=== PATIENT | female | born 1990 | race Caucasian/White ===

== ENCOUNTER 2016-04-02 12:47 | Emergency (ER) | payer MEDICAID ==
[2016-04-02 13:07] VITALS: BP 128/71
--- NOTE | 2016-04-02 13:37 | ERNOTE ---
Medical Problem HPI - Narrative Date of Service: 04/02/16 - General Chief Complaint: Nausea/Vomiting Time Seen by Provider: 04/02/16 13:11 Source: patient Exam Limitations: no limitations - Immun/Allergies/Home Medications Immunizations: IMMUNIZATION HX Immunizations Up to Date Yes History of Influenza Vaccine Yes Hx Pneumococcal Vaccination More Information Required Allergies/Adverse Reactions: Allergies sulfamethoxazole [From Bactrim] Allergy (Intermediate, Verified 04/02/16 13:07) Hives trimethoprim [From Bactrim] Allergy (Intermediate, Verified 04/02/16 13:07) Hives amoxicillin [Amoxicillin] Allergy (Verified 04/02/16 13:07) Sulfa (Sulfonamide Antibiotics) Allergy (Verified 04/02/16 13:07) Home Medications: HOME MEDICATIONS Ondansetron [Zofran Odt] 4 mg PO Q6H PRN #20 tab 04/02/16 [Last Taken Unknown] - History of Present History Narrative: Pt presents to ER with c/o dizziness, lightheadedness, abdominal pain, nausea, vomiting, diarrhea, and headaches. Pt states she has been drinking tea and water. Pt states this started yesterday. Pt denies ear pain, vision changes, sinus pain/drainage, cough, shortness of breath. Date (Duration): 04/01/16 Timing: constant Severity: moderate Modifying Factors - (Worsens): Present: eating, movement Review of Systems - Review of Systems Constitutional: Present: fever, chills, diaphoresis, weakness, fatigue, malaise , decreased activity level. Absent: recent illness, weight loss, fussy EYE: Present: no symptoms reported. Absent: eye pain, eye discharge, blurred vision, double vision, vision changes ENT: Present: no symptoms reported. Absent: ear pain, ear discharge, nose pain , nose congestion, nasal drainage, sore throat, throat swelling Respiratory: Present: no symptoms reported. Absent: shortness of breath, cough , wheezing, stridor Cardiology: Present: no symptoms reported. Absent: chest pain, palpitations, syncope Gastrointestinal/Abdominal: Present: nausea, vomiting, diarrhea, abdominal pain , eating less, drinking less. Absent: constipation Genitourinary: Present: no symptoms reported. Absent: frequency, pain, dysuria Musculoskeletal: Present: back pain, muscle pain Skin: Present: no symptoms reported. Absent: rash, lesions Neurological: Present: headache. Absent: anxiety, depressed, weakness, numbness , tingling, tremors Endocrine: Present: no symptoms reported. Absent: excessive sweating, intolerance to heat, intolerance to cold Hematologic/Lymphatic: Present: no symptoms reported. Absent: easy bruising, easy bleeding Psych: Present: no symptoms reported. Absent: anxiety, depressed - Patient's Past Medical History Patient History - Medical: No pertinent hx Patient History - Cardiac/Respiratory: No pertinent hx Patient History - Cancer: No Hx of Cancer Patient History - Surgical Procedures: No surgical history Patient History - Other: None - Family History Mother Family History - Medical: No pertinent hx Father Family History - Medical: No pertinent hx - Social History Living Situations: home Does anyone smoke in the home?: No Smoking Status: Never smoker Have you smoked in the past 12 months: No Alcohol Use: rarely Drug Use: none - Immunizations Immunizations Up to Date: Yes Hx Pneumococcal Vaccination: More Information Required to Determine History of Influenza Vaccine: Yes Physical Exam - Physical Exam General Appearance: Present: wd/wn, alert, no apparent distress. Absent: severe distress, anxious, obese Eye Exam: Normal inspection: bilateral, PERRL: bilateral, EOMI: bilateral Ears, Nose, Throat: Present: normal ENT inspection, hearing grossly normal, normal pharynx. Absent: cerumen impaction, nasal congestion, sinus pain/ drainage, tonsillar exudate Neck: Present: normal inspection, nontender, supple, full range of motion, limited range of motion Respiratory: Present: no respiratory distress, normal breath sounds, no accessory muscle use, chest nontender, lungs clear. Absent: decreased breath sounds, crackles, rales, rhonchi, stridor, wheezing Cardiovascular/Chest: Present: regular rate, rhythm, no murmur, normal peripheral pulses. Absent: tachycardia, bradycardia, irregularly irregular Gastrointestinal/Abdominal: Present: normal bowel sounds, nondistended, soft, no organomegaly, tenderness. Absent: abnormal bowel sounds, distended, guarding , rebound Back Exam: Present: normal inspection, normal range of motion, no CVA tenderness , no vertebral tenderness Extremity Exam: Present: normal inspection, non-tender, no edema, normal range of motion. Absent: decreased range of motion Neurological Exam: Present: alert, oriented, normal mood/affect, no motor/ sensory deficits, chick grader II-XII nml as tested, normal cerebellar test. Absent: facial droop, motor weakness Skin Exam: Present: normal color, warm/dry. Absent: diaphoresis, cyanosis, skin rash Lymphatic Exam: Present: no adenopathy ED Progress - Results and Orders Patient's Lab Results:: I have reviewed the patient's lab results. - Vital Signs Patient's Vital Signs:: I have reviewed the patient's vital signs. Vital Signs: Vital Signs 04/02/16 13:03 Temperature 34.8 C L Pulse Rate 92 Respiratory 12 Rate Blood Pressure 128/71 O2 Sat by Pulse 98 Oximetry - Progress/Reassessment Chief Complaint: Nausea/Vomiting Progress:: Improved Departure - Departure Clinical Impression: Acute gastroenteritis Disposition: Home self-care Condition: Good Instructions: Viral Gastroenteritis, Adult, [id number] Additional Instructions: Please follow up with primary provider in 2-3 days. Prescriptions: Ondansetron [Zofran Odt] 4 mg PO Q6H PRN #20 tab PRN Reason: Nausea
[2016-04-02] MEDS ORDERED: ONDANSETRON 4 MG TAB.RAPDIS PO ONE (13:43)
[2016-04-02] MEDS ORDERED: KETOROLAC TROMETHAMINE 60 MG/2 ML VIAL IM ONE ×2 (13:43→13:47)
[2016-04-02] MEDS ORDERED: diphenhydrAMINE HCL 50 MG/ML VIAL IM ONE (13:43)
[2016-04-02 13:47] LABS: Hematocrit 37.5 % (37.0-47.0); Hemoglobin 12.6 gm/dL (12.5-16.0); Mean Corpuscular Hemoglobin 28.6 pg (27-31); Mean Corpuscular Hgb Conc 33.6 g/dl (32-36); Mean Platelet Volume 9.8 fl (6.0-9.5); Neutrophil # 1.5 K/mm3 (1.3-6.0); Platelet Count 238 K/mm3 (150-450); Red Blood Count 4.41 M/mm3 (4.2-5.4); Red Cell Distribution Width 13.4 % (11.5-14.0); White Blood Count 3.7 K/mm3 (4.0-10.5)
[2016-04-02] MEDS ORDERED: diphenhydrAMINE HCL 50 MG/ML VIAL ONE (13:47)
[2016-04-02] MEDS ORDERED: ONDANSETRON 4 MG TAB.RAPDIS ONE (13:47)
[2016-04-02 14:02] LABS: BUN/Creatinine Ratio 13.2 (9.0-21.6); Carbon Dioxide 29.9 mmol/L (24-32.6); Potassium 3.5 mmol/L (3.4-4.6)
[2016-04-02 14:03] LABS: Albumin * 3.6 gm/dl (3.4-5.0); Anion Gap 10.6 mmol/L (6.8-13.8); Bilirubin, Total 0.4 mg/dL (0.0-1.1); Ca. Corrected For Albumin 8.8 mg/dL (8.4-10.2); Calcium * 8.8 mg/dL (7.9-10.9); Total Protein 6.9 gm/dL (6.2-8.2)
== END 2016-04-02 16:56 | disposition home or self-care (01) ==
LOC: ER 12:47
DX: A08.4 Viral intestinal infection, unspecified (principal)

== ENCOUNTER 2016-07-02 09:27 | Emergency (ER) | payer MEDICAID ==
[2016-07-02 09:44] VITALS: BP 110/71
--- OUTSIDE RECORDS SUMMARY | 2016-07-02 10:07 | XMS REPORT | Continuity of Care Document ---
:1990 Author Organization [facility] ([facility]) Address [address] [place] [address] Phone [phone] Care Team Providers Name Role Phone Yamil Monte Primary Care Provider [phone] Source Comments This disclosure is being made pursuant to the Care Everywhere program, applicable federal and state laws, and may not contain all informaitonavailable regarding this patient.[facility] ([facility]) Active Allergies and Adverse Reactions Not on File Current Medications Prescription Sig. Disp. Refills Start Date End Date Status HYDROcodone-acetamino Take 1-2 tablets by 15 tablet 0 12/09/2015 Active phen 5-325 mg per mouth every 6 hours tablet as needed for Pain. albuterol 2.5 mg/3 mL Use 3 mL (2.5 mg 180 mL 11 12/09/2015 Active inhalation solution total) by inhalation every 4 hours as needed. LORazepam 1 mg tablet Take 0.5-1 tablets 12 tablet 0 12/09/2015 Active (0.5-1 mg total) by mouth every 6 hours as needed for Anxiety. Active Problems Not on file Social History Tobacco Use Types Packs/Day Years Used Date Never Assessed Last Filed Vital Signs Vital Sign Reading Time Taken Blood Pressure 121/75 12/09/2015 11:23 PM CDT Pulse 89 12/09/2015 11:23 PM CDT Temperature 37.1 C (98.8 F) 12/09/2015 10:15 PM CDT Respiratory Rate 16 12/09/2015 11:23 PM CDT Height - - Weight - - Body Mass Index - - Oxygen Saturation 100% 12/09/2015 11:23 PM CDT Plan of Care Health Maintenance Due Date Last Done Comments Hepatitis B Vaccine (1 of 3 - Primary Series) 1990 HPV Vaccine (1 of 3 - Female/Unknown 3 Dose Series) 10/08/2002 Tdap Vaccine 10/08/2002 Cervical Cancer Screening 10/08/2009 Lipid Disorder Screening 10/08/2009 MMR Vaccine 10/08/2009 Td Vaccine 10/08/2009 Varicella Vaccine (1 of 2 - Adult - No Evidence of 10/08/2009 Immunity) Influenza Vaccine: Seasonal (#1) 10/07/2015 Results from Last 3 Months Not on file
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
== END 2016-07-02 11:00 | disposition home or self-care (01) ==
LOC: ER 09:27
DX: J30.2 Other seasonal allergic rhinitis (principal)

== ENCOUNTER 2016-07-06 21:59 | Emergency (ER) | payer MEDICAID ==
--- OUTSIDE RECORDS SUMMARY | 2016-07-06 22:19 | XMS REPORT | Continuity of Care Document ---
:1990 Author Organization [facility] ([facility]) Address [address] [place] [address] Phone [phone] Care Team Providers Name Role Phone Yamil Monte Primary Care Provider [phone] Source Comments This disclosure is being made pursuant to the Care Everywhere program, applicable federal and state laws, and may not contain all informaitonavailable regarding this patient.[facility] ([facility]) Active Allergies and Adverse Reactions Not on [...]
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
[2016-07-06] MEDS ORDERED: NAPROXEN SODIUM 550 MG TABLET PO ONE (23:03)
[2016-07-06] MEDS ORDERED: NAPROXEN SODIUM 550 MG TABLET ONE (23:07)
[2016-07-06 23:14] VITALS: BP 120/76
== END 2016-07-06 23:13 | disposition home or self-care (01) ==
LOC: ER 21:59
DX: M94.0 Chondrocostal junction syndrome [Tietze] (principal); F17.210 Nicotine dependence, cigarettes, uncomplicated

== ENCOUNTER 2016-09-20 15:10 | Emergency (ER) | payer MEDICAID ==
[2016-09-20 16:31] VITALS: BP 107/54
--- NOTE | 2016-09-20 16:55 | ERNOTE ---
ENT HPI Date of Service: 09/20/16 Presenting Symptoms: other - sore throat Time Seen by Provider: 09/20/16 16:11 Source: patient Exam Limitations: no limitations - Immun/Allergies/Home Medications Immunizations: IMMUNIZATION HX Immunizations Up to Date Yes History of Influenza Vaccine Yes Hx Pneumococcal Vaccination More Information Required Allergies/Adverse Reactions: Allergies Allergy/AdvReac Type Severity Reaction Status Date / Time amoxicillin [Amoxicillin] Allergy Intermediate Hives Verified 09/20/16 15:27 Sulfa (Sulfonamide Allergy Intermediate Hives Verified 09/20/16 15:27 Antibiotics) sulfamethoxazole Allergy Intermediate Hives Verified 09/20/16 15:27 [From Bactrim] trimethoprim [From Bactrim] Allergy Intermediate Hives Verified 09/20/16 15:27 Home Medications: HOME MEDICATIONS Norelgestromin/Ethin.estradiol [Xulane Patch] 1 each TD DAILY 07/06/16 [Last Taken Unknown] Cefdinir 300 mg PO BID #14 capsule 09/20/16 [Last Taken Unknown] Lidocaine HCl [Lidocaine HCl Viscous 2%] 5 ml MM BID PRN #30 udc 09/20/16 [Last Taken Unknown] - Pain Score Pain Score #1 Pain Score: 8 - History of Present Illness Narrative: Patient is a 25 year old female who presents to the ED with complaints of sore throat x 3 days. States she has had frequent diagnosis of strep throat in the past and this feels like the same. Denies NV, fever or chills yet complains of fatigue. Date (Duration): 09/17/16 Severity: Present: mild ENT Location: Present: throat Prearrival Treatment: Present: no prearrival treatment Modifying Factors - Improves: Reports: cold Modifying Factors - Worsens: Reports: nothing Associated Symptoms - ENT: Reports: poor fluid intake, poor solid intake, sore throat. Denies: fever, malaise, cough, voice change, drooling, nasal congestion /drainage, facial pain/swelling, tooth pain, jaw swelling, change in hearing, ear drainage, headache, foreign body Review of Systems - Review of Systems Constitutional: Present: fatigue. Absent: recent illness, fever, chills, diaphoresis, weakness, malaise, weight loss EYE: Present: no symptoms reported. Absent: eye pain, eye discharge, blurred vision, double vision, vision changes ENT: Present: sore throat. Absent: ear pain, ear discharge, pulling on ears, nose pain, nose congestion, nasal drainage, throat swelling Respiratory: Present: no symptoms reported. Absent: shortness of breath, cough , orthopnea, wheezing, stridor Cardiology: Present: no symptoms reported. Absent: chest pain, palpitations, syncope, edema, claudication Gastrointestinal/Abdominal: Present: no symptoms reported, diarrhea, eating less , drinking less. Absent: nausea, vomiting, constipation, abdominal pain Genitourinary: Present: no symptoms reported Musculoskeletal: Present: no symptoms reported Skin: Present: no symptoms reported. Absent: rash Neurological: Present: no symptoms reported Endocrine: Present: no symptoms reported Hematologic/Lymphatic: Present: no symptoms reported Psych: Present: no symptoms reported - Patient's Past Medical History Patient History - Medical: No pertinent hx Patient History - Cardiac/Respiratory: No pertinent hx Patient History - Cancer: No Hx of Cancer Patient History - Surgical Procedures: D & C Patient History - Other: None LMP (females 10-50): last week - Family History Mother Family History - Medical: No pertinent hx Father Family History - Medical: No pertinent hx Family History - Cardiac/Respiratory: No pertinent hx Family History - Cancer: No pertinent family hx - Social History Living Situations: home Abuse History: No History of abuse Psych History: Hx of Anxiety Does anyone smoke in the home?: No Smoking Status: Former smoker Alcohol Use: rarely Drug Use: none - Immunizations Immunizations Up to Date: Yes Hx Pneumococcal Vaccination: More Information Required to Determine History of Influenza Vaccine: Yes Physical Exam - Physical Exam General Appearance: Present: wd/wn, alert, no apparent distress Head Exam: Present: normal inspection, no evidence of injury Eye Exam: Normal inspection: bilateral, PERRL: bilateral Ears, Nose, Throat: Present: pharyngeal erythema. Absent: abnormal TM (R), abnormal TM (L), tonsillar exudate, tonsillar swelling, dry mucous membranes Neck: Present: normal inspection, nontender, supple, full range of motion. Absent: lymphadenopathy (R), lymphadenopathy (L) Respiratory: Present: no respiratory distress, normal breath sounds, no accessory muscle use, chest nontender, lungs clear Cardiovascular/Chest: Present: regular rate, rhythm, no murmur, normal peripheral pulses Peripheral Pulses: N=norm/S=strong/W=weak/B=bound/A=absent: Carotid (R): Normal , Carotid (L): Normal, Radial (R): Normal, Radial (L): Normal Gastrointestinal/Abdominal: Present: normal bowel sounds, nontender, nondistended, soft, no organomegaly Rectal Exam: Present: deferred Back Exam: Present: normal inspection, normal range of motion, no CVA tenderness , no vertebral tenderness Extremity Exam: Present: normal inspection, non-tender, normal range of motion, no edema Neurological Exam: Present: alert, oriented, normal mood/affect, no motor/ sensory deficits Skin Exam: Present: normal color, warm/dry Lymphatic Exam: Present: no adenopathy ED Progress - Vital Signs Patient's Vital Signs:: I have reviewed the patient's vital signs. Vital Signs: Vital Signs 09/20/16 09/20/16 15:25 16:22 Temperature 37.1 C Pulse Rate 102 H 91 Respiratory 16 Rate Blood Pressure 125/73 107/54 O2 Sat by Pulse 100 97 Oximetry - Progress/Reassessment Chief Complaint: Sore Throat Progress:: Unchanged Progress Note-Subjective: 09/20/16 17:06 States has had multiple episodes of strep in the past and has taken Cefdinir for this. States has never had reaction to it Departure Clinical Impression: Strep pharyngitis - Departure Disposition: Home self-care Condition: Good Instructions: Strep Throat, [id number], Form - Excuse from Work, School, or Physical Activity Additional Instructions: Start antibiotic tonight and take as directed until gone. Push fluids. Tylenol /Ibuprofen for body aches and fever. Referrals: Jazzmine Tapia FNP [Primary Care Provider] - Prescriptions: Cefdinir 300 mg PO BID #14 capsule Lidocaine HCl [Lidocaine HCl Viscous 2%] 5 ml MM BID PRN #30 udc PRN Reason: Pain
== END 2016-09-20 17:04 | disposition home or self-care (01) ==
LOC: ER 15:10
DX: J02.0 Streptococcal pharyngitis (principal)

== ENCOUNTER 2016-09-28 12:27 | Emergency (ER) | payer MEDICAID ==
[2016-09-28 13:20] LABS: Hematocrit 35.9 % (37.0-47.0); Mean Cell Volume 83.7 fl (78-100); Mean Corpuscular Hgb Conc 33.4 g/dl (32-36); Mean Platelet Volume 9.5 fl (6.0-9.5); Neutrophil # 6.6 K/mm3 (1.3-6.0); Neutrophil % 65.9 % (42-75.0); Platelet Count 310 K/mm3 (150-450); Red Blood Count 4.29 M/mm3 (4.2-5.4); Red Cell Distribution Width 12.7 % (11.5-14.0)
--- NOTE | 2016-09-28 13:29 | ERNOTE ---
Date of Service: 09/28/16 Time Seen by Provider: 09/28/16 13:00 Stated Complaint: COUGH/CHEST HURTING Presenting Symptoms:: cough Source: patient, RN notes reviewed, past records Exam Limitations: no limitations Immunizations: IMMUNIZATION HX Immunizations Up to Date Yes History of Influenza Vaccine Yes Hx Pneumococcal Vaccination No Allergies/Adverse Reactions: Allergies amoxicillin [Amoxicillin] Allergy (Intermediate, Verified 09/20/16 15:27) Hives Sulfa (Sulfonamide Antibiotics) Allergy (Intermediate, Verified 09/20/16 15:27) Hives sulfamethoxazole [From Bactrim] Allergy (Intermediate, Verified 09/20/16 15:27) Hives trimethoprim [From Bactrim] Allergy (Intermediate, Verified 09/20/16 15:27) Hives Home Medications: HOME MEDICATIONS NK [No Home Medication] 09/28/16 [Last Taken Unknown] - History of Present Ilness Narrative: Miri is a 25-year-old female who presents to the emergency department for a cough that began 4 days ago. She was seen here on September 20 and tested positive for strep throat. She was treated with cefdinir and reports that she finished the antibiotic yesterday. She should still be on the antibiotic, as it has not been 10 days since it was prescribed. She also reports having a fever last evening. She denies any sick contacts. Prior Treatment: Reports: recently seen, treated by physician. Denies: currently on antibiotics Review of Systems - Review of Systems Constitutional: Present: recent illness, fever, fatigue, malaise. Absent: chills EYE: Present: no symptoms reported ENT: Present: sore throat. Absent: ear pain, nose pain, nose congestion Respiratory: Present: cough. Absent: shortness of breath, wheezing Cardiology: Absent: chest pain, syncope Gastrointestinal/Abdominal: Absent: nausea, vomiting, abdominal pain Genitourinary: Absent: other - possible Musculoskeletal: Absent: muscle pain, joint pain Skin: Absent: rash, lesions, lumps Neurological: Absent: headache, dizziness/light-headedness Endocrine: Present: no symptoms reported Hematologic/Lymphatic: Present: no symptoms reported Psych: Present: no symptoms reported - Patient's Past Medical History Patient History - Medical: Anxiety, Depression Patient History - Cardiac/Respiratory: No pertinent hx Patient History - Cancer: No Hx of Cancer Patient History - Surgical Procedures: D & C Patient History - Other: None LMP (females 10-50): 1 month - Family History Mother Family History - Medical: No pertinent hx Father Family History - Medical: No pertinent hx Family History - Cardiac/Respiratory: No pertinent hx Family History - Cancer: No pertinent family hx - Social History Living Situations: home Abuse History: No History of abuse Psych History: Hx of Anxiety, Hx of Depression Does anyone smoke in the home?: No Smoking Status: Never smoker Have you smoked in the past 12 months: No Do you dip or chew tobacco: No Alcohol Use: rarely Drug Use: none - Immunizations Immunizations Up to Date: Yes Hx Pneumococcal Vaccination: No History of Influenza Vaccine: Yes Physical Exam - Physical Exam General Appearance: Present: wd/wn, alert, no apparent distress Head Exam: Present: normal inspection Ears, Nose, Throat: Present: normal ENT inspection Neck: Present: normal inspection, nontender, supple Respiratory: Present: no respiratory distress, normal breath sounds, no accessory muscle use, lungs clear Cardiovascular/Chest: Present: regular rate, rhythm, no murmur Extremity Exam: Present: normal inspection, normal range of motion, no edema Neurological Exam: Present: alert, oriented, normal mood/affect, no motor/ sensory deficits Skin Exam: Present: normal color, warm/dry ED Progress - Results and Orders Patient's Lab Results:: I have reviewed the patient's lab results. - Vital Signs Patient's Vital Signs:: I have reviewed the patient's vital signs. Vital Signs: Vital Signs 09/28/16 12:44 Temperature 36.9 C Pulse Rate 78 Respiratory 14 Rate Blood Pressure 103/64 O2 Sat by Pulse 98 Oximetry - X-Ray X-Ray #1 X-Ray: chest Interpretation: Reviewed by me X-ray Comments: No acute cardiopulmonary process - Progress/Reassessment Chief Complaint: Upper Respiratory Symptoms Progress:: Unchanged Departure - Departure Clinical Impression: Bronchitis, acute Qualifiers: Bronchitis organism: unspecified organism Qualified Code(s): J20.9 - Acute bronchitis, unspecified Disposition: Home self-care Condition: Good Instructions: Acute Bronchitis, Form - Excuse from Work, School, or Physical Activity Referrals: Jazzmine Tapia FNP [Primary Care Provider] -
[2016-09-28 13:33] LABS: Albumin * 3.2 gm/dl (3.4-5.0); BUN/Creatinine Ratio 7.9 (9.0-21.6); Bilirubin, Total 0.5 mg/dL (0.0-1.1); Ca. Corrected For Albumin 8.8 mg/dL (8.4-10.2); Calcium * 8.5 mg/dL (7.9-10.9); Potassium 3.3 mmol/L (3.4-4.6)
[2016-09-28 13:40] LABS: Anion Gap 11.8 mmol/L (6.8-13.8); Carbon Dioxide 26.5 mmol/L (24-32.6)
[2016-09-28 14:03] VITALS: BP 114/59
== END 2016-09-28 14:03 | disposition home or self-care (01) ==
LOC: ER 12:27
DX: J20.9 Acute bronchitis, unspecified (principal)

== ENCOUNTER 2016-10-04 02:07 | Emergency (ER) | payer MEDICAID ==
[2016-10-04 02:53] LABS: Urine Bilirubin Negative (NEGATIVE); Urine Blood 250 /ul (NEGATIVE); Urine Ketone Negative (NEGATIVE); Urine Protein 100 mg/dL (NEGATIVE); Urine Specific Gravity 1.025 SP.GR. (1.005-1.010); Urine Urobilinogen Normal (NORMAL); Urine pH 6.5 pH (5.0-7.0)
[2016-10-04 02:59] LABS: Urine Appearance Slightly Cloudy; Urine Bacteria 2+; Urine Color Red; Urine Nitrite Positive (NEGATIVE); Urine RBC >50 /hpf (0-5)
[2016-10-04] MEDS ORDERED: LEVOFLOXACIN 500 MG TABLET ONE (03:14)
[2016-10-04] MEDS ORDERED: LEVOFLOXACIN 500 MG TABLET PO ONE (03:14)
[2016-10-04 03:17] VITALS: BP 130/69
--- NOTE | 2016-10-04 03:19 | ERNOTE ---
ER Female HPI Date of Service: 10/04/16 Stated Complaint: UTI Presenting Symptoms: dysuria Source: patient Immunizations: IMMUNIZATION HX Immunizations Up to Date Yes History of Influenza Vaccine Yes Hx Pneumococcal Vaccination No Allergies/Adverse Reactions: Allergies amoxicillin [Amoxicillin] Allergy (Intermediate, Verified 09/20/16 15:27) Hives Sulfa (Sulfonamide Antibiotics) Allergy (Intermediate, Verified 09/20/16 15:27) Hives sulfamethoxazole [From Bactrim] Allergy (Intermediate, Verified 09/20/16 15:27) Hives trimethoprim [From Bactrim] Allergy (Intermediate, Verified 09/20/16 15:27) Hives Home Medications: HOME MEDICATIONS Levofloxacin [Levaquin] 500 mg PO DAILY #10 tab 10/04/16 [Last Taken Unknown] - History of Present Illness Narrative: frequent uti's noted - Patient's Past Medical History Patient History - Medical: No pertinent hx Patient History - Cardiac/Respiratory: No pertinent hx Patient History - Cancer: No Hx of Cancer Patient History - Surgical Procedures: D & C Patient History - Other: None LMP (females 10-50): now - Family History Mother Family History - Medical: No pertinent hx Father Family History - Medical: No pertinent hx Family History - Cardiac/Respiratory: No pertinent hx Family History - Cancer: No pertinent family hx - Social History Living Situations: significant other Abuse History: No History of abuse Psych History: Hx of Anxiety, Hx of Depression Does anyone smoke in the home?: No Smoking Status: Never smoker Alcohol Use: rarely Drug Use: none - Immunizations Immunizations Up to Date: Yes Hx Pneumococcal Vaccination: No History of Influenza Vaccine: Yes ED Progress - Results and Orders Patient's Lab Results:: I have reviewed the patient's lab results. Results and Orders: Laboratory Tests 10/04/16 02:31 Urine Color Red Urine Appearance Slightly cloudy Urine pH 6.5 Ur Specific Riddle 1.025 Urine Protein 100 H Urine Glucose (UA) Negative Urine Ketones Negative Urine Blood 250 H Urine Nitrate Positive H Urine Bilirubin Negative Prot Sulfosalicylic Acd 4+ H Urine Urobilinogen Normal Ur Leukocyte Esterase 100 H Urine RBC >50 H Urine WBC 10-25 H Ur Epithelial Cells 0-5 Urine Bacteria 2+ H Urine Culture Comments Culture to follow - Vital Signs Patient's Vital Signs:: I have reviewed the patient's vital signs. Vital Signs: Vital Signs 10/04/16 02:26 Temperature 36.6 C Pulse Rate 83 Respiratory 14 Rate Blood Pressure 116/77 O2 Sat by Pulse 100 Oximetry - Progress/Reassessment Chief Complaint: Genitourinary Problem Plan - Plan Plan: patient is stable for discharge Departure Clinical Impression: UTI (urinary tract infection) Qualifiers: Urinary tract infection type: acute cystitis Hematuria presence: with hematuria Qualified Code(s): N30.01 - Acute cystitis with hematuria - Departure Disposition: Home self-care Condition: Good Instructions: Urinary Tract Infection, Adult, [id number] Referrals: Jazzmine Tapia FNP [Primary Care Provider] - 10/15/16 Prescriptions: Levofloxacin [Levaquin] 500 mg PO DAILY #10 tab
== END 2016-10-04 03:22 | disposition home or self-care (01) ==
LOC: ER 02:07
DX: N30.01 Acute cystitis with hematuria (principal)

== ENCOUNTER 2016-11-05 09:21 | Day surgery (SDC) | payer MEDICAID ==
[~2016-11-05 09:21] MED LIST: ACETAMINOPHEN 160 MG/5 ML BTL PO PRN; DEXAMETHASONE SOD PHOSPHATE 10 MG/ML VIAL IV PRN; HYDROcodone/ACETAMINOPHEN 5 ML UDC PO PRN; MORPHINE SULFATE 2 MG/ML DISP.SYRIN IV PRN; MORPHINE SULFATE 4 MG/ML SYRG IV PRN; ONDANSETRON HCL/PF 2 MG/ML VIAL IV PRN; PROMETHAZINE HCL 5 MG in DEXTROSE 5 % IN WATER 50 ML IV PRN; RINGER'S SOLUTION,LACTATED 1,000 ML IV PRN
[2016-11-05] MEDS ORDERED: RINGER'S SOLUTION,LACTATED 1,000 ML IV ONE (09:54)
[2016-11-05] MEDS ORDERED: BUPIVACAINE HCL 50 ML VIAL IJ ONE (10:43)
[2016-11-05] MEDS ORDERED: PROMETHAZINE HCL 12.5 MG in DEXTROSE 5 % IN WATER 50 ML IV PRN ×2 (11:03)
[2016-11-05] MEDS ORDERED: NALOXONE HCL 0.4 MG/ML VIAL IV PRN (11:03)
[2016-11-05] MEDS ORDERED: diphenhydrAMINE HCL 50 MG/ML VIAL IV PRN (11:03)
[2016-11-05] MEDS ORDERED: HYDROmorphone HCL 2 MG/ML VIAL IV PRN (11:03)
[2016-11-05] MEDS ORDERED: MORPHINE SULFATE 4 MG/ML SYRG IV ONE (11:05)
[2016-11-05 12:59] VITALS: BP 118/73
== END 2016-11-05 09:22 | disposition home or self-care (01) ==
LOC: AMB 09:21
PROVIDERS: ATTEND Allergy & Immunology
PROC: 0CTQXZZ Resection of Adenoids, External Approach (ICD-10-PCS; 2016-11-05)
PROC: 0CTPXZZ Resection of Tonsils, External Approach (ICD-10-PCS; principal; 2016-11-05 10:55)
DX: J35.03 Chronic tonsillitis and adenoiditis (principal); J35.8 Other chronic diseases of tonsils and adenoids; J45.909 Unspecified asthma, uncomplicated; F17.200 Nicotine dependence, unspecified, uncomplicated; Z68.20 Body mass index [BMI] 20.0-20.9, adult

== ENCOUNTER 2016-11-09 15:01 | Emergency (ER) | payer MEDICAID ==
[2016-11-09] MEDS ORDERED: MORPHINE SULFATE 4 MG/ML SYRG SC ONE (15:29)
[2016-11-09] MEDS ORDERED: METHYLPREDNISOLONE ACETATE 80 MG/ML VIAL IM ONE (15:33)
--- NOTE | 2016-11-09 15:35 | ERNOTE ---
ENT HPI Presenting Symptoms: other - sore throat Time Seen by Provider: 11/09/16 15:21 Source: patient, family Exam Limitations: no limitations - Immun/Allergies/Home Medications Immunizations: IMMUNIZATION HX Immunizations Up to Date Yes History of Influenza Vaccine Yes Hx Pneumococcal Vaccination No Allergies/Adverse Reactions: Allergies Allergy/AdvReac Type Severity Reaction Status Date / Time acetaminophen [From Percocet] Allergy Severe rash, Verified 11/09/16 15:18 "breathe funny; can't catch my breath" oxycodone [From Percocet] Allergy Severe rash, Verified 11/09/16 15:18 "breathe funny; can't catch my breath" amoxicillin [Amoxicillin] Allergy Mild Hives Verified 11/09/16 15:18 sulfamethoxazole Allergy Mild Hives Verified 11/09/16 15:18 [From Bactrim] trimethoprim [From Bactrim] Allergy Mild Hives Verified 11/09/16 15:18 Home Medications: HOME MEDICATIONS Hydrocodone Bit/Acetaminophen [Hydrocodon-Acetamin 7.5-325/15] 10 ml PO Q6H PRN #500 solution 11/05/16 [Last Taken Unknown] - History of Present Illness Narrative: Patient is several days postop from a tonsillectomy and states that the hydrocodone that she is on is not working for the postop pain. Patient states she did not call her ENT physician if it became here for pain relief. While her allergies say she is allergic to Tylenol she states this is not true she is allergic to oxycodone but not the Tylenol in the Percocet. Severity: Present: moderate ENT Location: Present: throat Prearrival Treatment: Present: prescription meds - hydrocodone suspension Modifying Factors - Improves: Reports: nothing Modifying Factors - Worsens: Reports: nothing Associated Symptoms - ENT: Reports: denies symptoms Prior Treament: Reports: recently seen, treated by physician Review of Systems - Review of Systems Constitutional: Present: See HPI EYE: Present: no symptoms reported ENT: Present: sore throat Respiratory: Present: no symptoms reported Cardiology: Present: no symptoms reported Gastrointestinal/Abdominal: Present: no symptoms reported Genitourinary: Present: no symptoms reported Musculoskeletal: Present: no symptoms reported Skin: Present: no symptoms reported Neurological: Present: no symptoms reported Endocrine: Present: no symptoms reported Hematologic/Lymphatic: Present: no symptoms reported Psych: Present: no symptoms reported - Patient's Past Medical History Patient History - Medical: Anxiety, Depression, Other Patient History - Cardiac/Respiratory: No pertinent hx Patient History - Cancer: No Hx of Cancer Patient History - Surgical Procedures: T & A - within the past few days Patient History - Other: None LMP (Calendar): 10/26/16 - Family History Mother Family History - Medical: No pertinent hx Family History - Cardiac/Respiratory: No pertinent hx Family History - Cancer: Breast Father Family History - Medical: No pertinent hx Family History - Cardiac/Respiratory: No pertinent hx Family History - Cancer: No pertinent family hx - Social History Living Situations: home Abuse History: No History of abuse Psych History: Hx of Anxiety, Hx of Depression Does anyone smoke in the home?: No Smoking Status: Former smoker Alcohol Use: rarely Drug Use: none - Immunizations Immunizations Up to Date: Yes Hx Pneumococcal Vaccination: No History of Influenza Vaccine: Yes Physical Exam - Physical Exam General Appearance: Present: wd/wn, alert, moderate distress Eye Exam: Normal inspection: bilateral, PERRL: bilateral Ears, Nose, Throat: Present: pharyngeal erythema, other - healing tonsillectomy Neck: Present: normal inspection, nontender Respiratory: Present: no respiratory distress, normal breath sounds, no accessory muscle use, chest nontender, lungs clear Cardiovascular/Chest: Present: regular rate, rhythm, no murmur, normal peripheral pulses Gastrointestinal/Abdominal: Present: normal bowel sounds, nontender, nondistended, soft, no organomegaly Rectal Exam: Present: deferred Back Exam: Present: normal inspection, normal range of motion Extremity Exam: Present: normal inspection, non-tender, no edema, normal range of motion Neurological Exam: Present: alert, oriented, normal mood/affect Skin Exam: Present: normal color, warm/dry Lymphatic Exam: Present: no adenopathy ED Progress - Vital Signs Patient's Vital Signs:: I have reviewed the patient's vital signs. Vital Signs: Vital Signs 11/09/16 15:15 Temperature 36.9 C Pulse Rate 78 Respiratory 16 Rate Blood Pressure 122/78 O2 Sat by Pulse 100 Oximetry - Progress/Reassessment Chief Complaint: Sore Throat Plan - Plan Plan: Patient is already on the 7.5 mg of hydrocodone suspension. I did give the patient 4 mg of morphine subcutaneous and we will start having her take her hydrocodone suspension every 4 hours. Patient is told that she has to call Dr. Brown in the morning to get further direction regarding her pain management. Patient is also given a one-time injection of Depo-Medrol to help minimize inflammation in the residual swelling that might be present from surgery. Departure Clinical Impression: Post-op pain - Departure Disposition: Home self-care Condition: Good Instructions: Tonsillectomy and Adenoidectomy, Child, Care After, [id number] Additional Instructions: Call Dr. Mendez in the am to keep him apprised of your condition Referrals: Jazzmine Tapia FNP [Primary Care Provider] - Estevan Mendez MD [Courtesy Staff] -
[2016-11-09] MEDS ORDERED: METHYLPREDNISOLONE ACETATE 80 MG/ML VIAL ONE (15:37)
[2016-11-09] MEDS ORDERED: MORPHINE SULFATE 4 MG/ML SYRG ONE (15:37)
[2016-11-09 16:26] VITALS: BP 108/64
== END 2016-11-09 15:46 | disposition home or self-care (01) ==
LOC: ER 15:01
DX: G89.18 Other acute postprocedural pain (principal)

== ENCOUNTER 2016-12-26 14:50 | Emergency (ER) | payer MEDICAID ==
--- NOTE | 2016-12-26 15:12 | ERNOTE ---
Chest Pain/Cardiac HPI Date of Service: 12/26/16 Chief Complaint: Chest Pain Time Seen by Provider: 12/26/16 15:05 Source: patient, family, RN notes reviewed Exam Limitations: clinical condition Immunizations: IMMUNIZATION HX Immunizations Up to Date Yes History of Influenza Vaccine Yes Hx Pneumococcal Vaccination No Allergies/Adverse Reactions: Allergies acetaminophen [From Percocet] Allergy (Severe, Verified 12/26/16 14:58) rash, "breathe funny; can't catch my breath" oxycodone [From Percocet] Allergy (Severe, Verified 12/26/16 14:58) rash, "breathe funny; can't catch my breath" amoxicillin [Amoxicillin] Allergy (Mild, Verified 12/26/16 14:58) Hives sulfamethoxazole [From Bactrim] Allergy (Mild, Verified 12/26/16 14:58) Hives trimethoprim [From Bactrim] Allergy (Mild, Verified 12/26/16 14:58) Hives Home Medications: HOME MEDICATIONS Ibuprofen [Motrin] 600 mg PO Q6H PRN #40 tab 12/26/16 [Last Taken Unknown] Narrative: 26 year old female presents to the ED with chest pain that began late yesterday evening. The pain resolved and she was able to sleep. It has returned this morning. She states that she feels like she is going to pass out when the pain becomes severe. She has not taken anything for her symptoms. She is a smoker and is on an oral contraceptive. Date (Duration): 12/25/16 Timing: intermittent Severity/Quality: moderate, aching Location: central Chest Pain Radiation: no radiation Activities at Onset: none Nitro Today/Relief: no nitro taken today Aspirin Treatment Today: no aspirin today Associated Symptoms: Absent: headache, syncope, cough, shortness of breath, diaphoresis, fever/chills, palpitations, nausea, vomiting, abdominal pain, back pain Prior Chest Pain/Cardiac Workup: Denies: prior chest pain Review of Systems - Review of Systems Constitutional: Absent: recent illness, fever, chills EYE: Present: no symptoms reported ENT: Absent: nose congestion, sore throat Respiratory: Absent: shortness of breath, cough Cardiology: Present: chest pain. Absent: palpitations, syncope, edema, claudication Gastrointestinal/Abdominal: Absent: nausea, vomiting, abdominal pain Genitourinary: Present: no symptoms reported Musculoskeletal: Absent: back pain, neck pain, joint pain Skin: Absent: rash, lesions, lumps Neurological: Absent: headache, weakness, numbness, tingling Endocrine: Present: no symptoms reported Hematologic/Lymphatic: Present: no symptoms reported Psych: Present: no symptoms reported - Patient's Past Medical History Patient History - Medical: Anxiety, Depression, Other Patient History - Cardiac/Respiratory: No pertinent hx Patient History - Cancer: No Hx of Cancer Patient History - Surgical Procedures: T & A Patient History - Other: None LMP (females 10-50): now - Family History Mother Family History - Medical: No pertinent hx Family History - Cardiac/Respiratory: No pertinent hx Family History - Cancer: Breast Father Family History - Medical: No pertinent hx Family History - Cardiac/Respiratory: No pertinent hx Family History - Cancer: No pertinent family hx - Social History Living Situations: home Abuse History: No History of abuse Psych History: Hx of Anxiety, Hx of Depression Smoking Status: Current every day smoker Cigarettes Packs Per Day: 0.5 - Immunizations Immunizations Up to Date: Yes Hx Pneumococcal Vaccination: No History of Influenza Vaccine: Yes Physical Exam - Physical Exam General Appearance: Present: alert, mild distress, thin Ears, Nose, Throat: Present: normal ENT inspection, normal pharynx Neck: Present: normal inspection, nontender, supple Respiratory: Present: no respiratory distress, normal breath sounds, no accessory muscle use, lungs clear Cardiovascular/Chest: Present: regular rate, rhythm, no murmur, normal peripheral pulses Gastrointestinal/Abdominal: Present: nontender, nondistended, soft Extremity Exam: Present: normal inspection, normal range of motion, no edema Neurological Exam: Present: alert, oriented, no motor/sensory deficits, other. Absent: normal mood/affect Skin Exam: Present: normal color, warm/dry ED Progress - Results and Orders Patient's Lab Results:: I have reviewed the patient's lab results. - Vital Signs Patient's Vital Signs:: I have reviewed the patient's vital signs. Vital Signs: Vital Signs 12/26/16 14:52 Temperature 36.9 C Pulse Rate 82 Respiratory 20 Rate Blood Pressure 134/81 O2 Sat by Pulse 100 Oximetry - EKG EKG: NSR EKG read: Reviewed by me - X-Ray X-Ray #1 X-Ray: chest Interpretation: Reviewed by me X-ray Comments: No acute cardiopulmonary process noted - CT/Ultrasound CT/Ultrasound Narrative: CTA chest shows no evidence of PE or other acute cardiopulmonary process - Progress/Reassessment Chief Complaint: Chest Pain Progress:: Improved Departure Clinical Impression: Acute chest wall pain - Departure Disposition: Home self-care Condition: Stable Instructions: Chest Wall Pain, [id number] Additional Instructions: Rest Heat to sore area Take ibuprofen with food Return for worsening symptoms, or follow up with your doctor if symptoms persist Referrals: Jazzmine Tapia FNP [Primary Care Provider] - Prescriptions: Ibuprofen [Motrin] 600 mg PO Q6H PRN #40 tab PRN Reason: Pain
[2016-12-26 15:20] LABS: Hematocrit 36.1 % (37.0-47.0); Hemoglobin 12.4 gm/dL (12.5-16.0); Mean Cell Volume 85.3 fl (78-100); Mean Corpuscular Hemoglobin 29.3 pg (27-31); Mean Corpuscular Hgb Conc 34.3 g/dl (32-36); Mean Platelet Volume 9.3 fl (6.0-9.5); Neutrophil # 3.1 K/mm3 (1.3-6.0); Neutrophil % 50.5 % (42-75.0); Platelet Count 287 K/mm3 (150-450); Red Blood Count 4.23 M/mm3 (4.2-5.4); Red Cell Distribution Width 13.7 % (11.5-14.0); White Blood Count 6.1 K/mm3 (4.0-10.5)
[2016-12-26 15:36] LABS: ALT 16 U/L (19-67); AST 11 U/L (0-48); Albumin * 3.5 gm/dl (3.4-5.0); Alkaline Phosphatase * 51 U/L (50-170); Anion Gap 11.2 mmol/L (6.8-13.8); BUN/Creatinine Ratio 11.1 (9.0-21.6); Bilirubin, Total 0.4 mg/dL (0.0-1.1); Blood Urea Nitrogen 8 mg/dL (3-23); Ca. Corrected For Albumin 9.1 mg/dL (8.4-10.2); Carbon Dioxide 27.2 mmol/L (24-32.6); Chloride 106 mmol/L (97-106); Glucose * 100 mg/dL (70-110); Potassium 3.4 mmol/L (3.4-4.6); Sodium 141 mmol/L (132-142); Total Protein 6.8 gm/dL (6.2-8.2); Troponin I Less than 0.017 ng/ml (0.00-0.10)
[2016-12-26] MEDS ORDERED: KETOROLAC TROMETHAMINE 30 MG/ML VIAL ONE (15:47)
[2016-12-26] MEDS ORDERED: KETOROLAC TROMETHAMINE 30 MG/ML VIAL IV ONE (15:51)
[2016-12-26] MEDS ORDERED: SUCRALFATE 1 G/10 ML UDC PO ONE (17:04)
[2016-12-26] MEDS ORDERED: MAG HYDROX/ALUMINUM HYD/SIMETH 30 ML UDC PO ONE (17:04)
[2016-12-26] MEDS ORDERED: LIDOCAINE HCL 20 ML UDC PO ONE (17:04)
[2016-12-26] MEDS ORDERED: BELLADONNA ALKALOIDS/PHENOBARB 60 ML BTL PO ONE (17:08)
[2016-12-26 18:04] VITALS: BP 136/75
== END 2016-12-26 17:45 | disposition home or self-care (01) ==
LOC: ER 14:50
DX: R07.89 Other chest pain (principal); F17.200 Nicotine dependence, unspecified, uncomplicated

== ENCOUNTER 2018-05-17 01:28 | Inpatient (IN) ==
[2018-05-17] MEDS ORDERED: RINGER'S SOLUTION,LACTATED 1,000 ML IV ONE ×2 (02:45→03:21)
[2018-05-17 03:01] LABS: Cocaine Ur Negative (NEGATIVE); Urine Barbiturate Negative (NEGATIVE); Urine Benzodiazepines Negative (NEGATIVE); Urine Opiates Negative (NEGATIVE); Urine PCP Negative (NEGATIVE); Urine THC Negative (NEGATIVE)
[2018-05-17] MEDS ORDERED: NALOXONE HCL 1 MG/1 ML SYRG IV PRN (03:03)
[2018-05-17] MEDS ORDERED: ONDANSETRON HCL/PF 2 MG/ML VIAL IV PRN (03:03)
[2018-05-17] MEDS ORDERED: BUPIVACAINE HCL/0.9 % NACL/PF 250 ML EP PRN (03:03)
[2018-05-17] MEDS ORDERED: BUPIVACAINE HCL/PF 30 ML VIAL EP SCH (03:15)
[2018-05-17] MEDS ORDERED: RINGER'S SOLUTION,LACTATED 1,000 ML IV PRN (03:21)
[2018-05-17] MEDS ORDERED: OXYTOCIN/DEXTROSE 5%-WATER 30 UNITS/500 ML BAG IV ONE ×2 (03:21→05:06)
[2018-05-17] MEDS ORDERED: LIDOCAINE HCL 50 ML VIAL PERI PRN (03:21)
--- NOTE | 2018-05-17 03:45 | ANES ---
Anesthesia Pre Procedure Eval Vitals/Labs: Last Vital Signs Temp 36.4 C 05/17/18 03:43 Pulse 108 H 05/17/18 03:43 Resp 20 05/17/18 03:43 BP 151/68 H 05/17/18 03:43 Pulse Ox 99 05/17/18 03:43 HOME MEDICATIONS Vit No.124/Iron/FA [ Vitamin Tablet] 1 ea PO DAILY 10/11/17 [Last Taken 05/16/18] Allergies/Adverse Reactions: Allergies Allergy/AdvReac Type Severity Reaction Status Date / Time oxycodone [From Percocet] Allergy Severe rash, Verified 05/17/18 02:00 "breathe funny; can't catch my breath" ceftriaxone [From Rocephin] Allergy Intermediate Hives Verified 05/17/18 02:00 amoxicillin [Amoxicillin] Allergy Mild Hives Verified 05/17/18 02:00 diphenhydramine Allergy Mild Hives Verified 05/17/18 02:00 [From Benadryl] sulfamethoxazole Allergy Mild Hives Verified 05/17/18 02:00 [From Bactrim] trimethoprim [From Bactrim] Allergy Mild Hives Verified 05/17/18 02:00 - Planned Procedure Planned Procedure: LABOR Epidural Medication List Reviewed:: Yes Allergies Verified: Yes Medical History (Last Reviewed 05/17/18 @ 03:44 by Christopher Hoffmann CRNA) Upper respiratory infection, acute (Acute) Abdominal pain affecting (Acute) Cervical intraepithelial neoplasia (CLARIBEL) (Acute) Urinary tract infection affecting (Acute) Anemia affecting (Acute) Onset Date: 09/06/1308/2011, 10/18/2017, 02/14/18 Spontaneous vaginal delivery (Resolved) Onset Date: Unknown Common cold virus (Resolved) Onset Date: Unknown Dysuria (Resolved) Onset Date: Unknown Ovarian cyst (Acute) Onset Date: Unknown Corneal abrasion (Resolved) Onset Date: Unknown Anxiety (Acute) Onset Date: Unknown Chest pain (Resolved) Onset Date: Unknown Pharyngitis (Resolved) Onset Date: Unknown Acute gastroenteritis (Acute) Onset Date: Unknown Acute seasonal allergic rhinitis (Acute) Onset Date: Unknown Costochondritis (Acute) Onset Date: Unknown Strep pharyngitis (Acute) Onset Date: Unknown Bronchitis, acute (Acute) Onset Date: Unknown UTI (urinary tract infection) (Acute) Onset Date: Unknown Post-op pain (Acute) Onset Date: Unknown Acute chest wall pain (Acute) Onset Date: Unknown Abdominal pain (Acute) Onset Date: Unknown Renal colic on right side (Resolved) Onset Date: Unknown Rash and nonspecific skin eruption (Acute) Onset Date: Unknown Trapezius muscle strain (Resolved) Right shoulder pain (Acute) Arrhythmia (Acute) Onset Date: ~05/2017 palpitations. Went to ER and was told everything was okay. Acid indigestion (Acute) Abnormal Pap smear of cervix Onset Date: 10/18/17 LGSIL Asthma Onset Date: Unknown Depression Onset Date: Unknown History of asthma No hospitalizations. PRN inhaler. Last used last wintedr.10/18/17 Kidney stone Onset Date: Unknown Macular degeneration Onset Date: 2004 Migraine Onset Date: Unknown without aura contractions Onset Date: ~04/2018 Sickle cell trait Onset Date: Unknown diagnosed as a baby Spontaneous Onset Date: 07/01/16 Ureteral stent retained Onset Date: 04/29/17 Trichomoniasis Onset Date: Unknown Surgical History (Last Reviewed 05/17/18 @ 03:44 by Christopher Hoffmann CRNA) History of renal stent (Resolved) Onset Date: Unknown History of dilation and curettage Onset Date: 07/01/16 Pt states she had a sab @ 13 wks with a d&C @ [facility]. History of tonsillectomy and adenoidectomy Onset Date: Unknown Hx of nephrolithotomy with removal of calculi Onset Date: 04/29/17 Hx of nephrolithotomy with removal of calculi Family History (Last Reviewed 05/10/18 @ 15:43 by Horacio Tang RN) Brother Sickle cell trait Asthma Daughter Sickle cell trait Father Asthma Diabetes Hypertension Sickle cell trait Macular degeneration Grandfather Lung cancer Grandmother Diabetes Hypertension CHF (congestive heart failure) COPD (chronic obstructive pulmonary disease) Sickle cell trait Mother Asthma Vagus nerve disease or syndrome Breast cancer Sister Asthma Sickle cell trait Son Sickle cell trait - Anesthesia Assessment and Plan ASA Class: PS, II Anesthesia Type Plan: Epidural
[2018-05-17] MEDS ORDERED: BUPIVACAINE HCL/PF 30 ML VIAL EP ONE (03:57)
--- NOTE | 2018-05-17 04:02 | ANES ---
Post Anesthesia Assessment - Vital Signs Vitals: Last Vital Signs Temp 36.4 C 05/17/18 03:43 Pulse 108 H 05/17/18 03:43 Resp 20 05/17/18 03:43 BP 151/68 H 05/17/18 03:43 Pulse Ox 99 05/17/18 03:43 Airway Patency: Normal - Mental Status Level Of Consciousness: Awake - N/V Assessment Nausea/Vomiting Presence: None Dehydration:: No
--- NOTE | 2018-05-17 04:02 | ANES ---
Anesthesia Procedure Note Procedure Note: ANESTHESIA PROCEDURE NOTE Date of Procedure: 05/17/2018. Time of procedure: 349. Performed by: Christopher Hoffmann CRNA Bulk Delivery Driver: None. Preprocedure diagnosis: Active labor. Post procedure diagnosis: Same. Procedure: Insertion of labor epidural. Indications: The patient is a 27 -year-old female in active labor requesting labor epidural for pain management. Findings: See below. Details of the procedure: The patient was placed in a sitting position. DuraPrep as well as Betadine swabs X3 was applied to the patient's back. Patient was then draped in a sterile fashion. Lidocaine 1% was infiltrated to the skin and subcutaneous tissues at the level of the L3-4 interspace. The epidural space was identified using a 18-gauge Tuohy needle with [id number] technique. Epidural catheter was inserted to a depth of 9 centimeters at skin. Negative test dose was elicited using 3 mL of 1% preservative-free lidocaine plus epinephrine 1 200,000. The epidural catheter was then taped and secured in place. A loading dose of 8 mL of 0.25% preservative-free bupivacaine was administered to the epidural catheter after negative aspiration for blood and CSF. EBL: Minimal. Fluids: N/A. Specimen: N/A. Post procedure condition: The patient tolerated the procedure well. No complications were noted. Thank you for this consultation. Christopher Hoffmann CRNA
--- NOTE | 2018-05-17 04:42 | HP ---
Chief Complaint - Chief Complaint Date of Service: 05/17/18 Time of Service: 04:42 Chief Complaint: Contractions History of Present Illness: 27 yo at 39 4/7 weeks presents to labor and delivery complaining of increasing frequency and intensity of contractions. This complicated by anemia, asthma, migraines, sickle cell trait carrier, and pelviectasis. Rh negative Rubella immune GBS negative Medical History (Last Reviewed 05/17/18 @ 04:46 by Deep Clarke DO) Upper respiratory infection, acute (Acute) Abdominal pain affecting (Acute) Cervical intraepithelial neoplasia (CLARIBEL) (Acute) Urinary tract infection affecting (Acute) Anemia affecting (Acute) Onset Date: 09/06/1308/2011, 10/18/2017, 02/14/18 Spontaneous vaginal delivery (Resolved) Onset Date: Unknown Common cold virus (Resolved) Onset Date: Unknown Dysuria (Resolved) Onset Date: Unknown Ovarian cyst (Acute) Onset Date: Unknown Corneal abrasion (Resolved) Onset Date: Unknown Anxiety (Acute) Onset Date: Unknown Chest pain (Resolved) Onset Date: Unknown Pharyngitis (Resolved) Onset Date: Unknown Acute gastroenteritis (Acute) Onset Date: Unknown Acute seasonal allergic rhinitis (Acute) Onset Date: Unknown Costochondritis (Acute) Onset Date: Unknown Strep pharyngitis (Acute) Onset Date: Unknown Bronchitis, acute (Acute) Onset Date: Unknown UTI (urinary tract infection) (Acute) Onset Date: Unknown Post-op pain (Acute) Onset Date: Unknown Acute chest wall pain (Acute) Onset Date: Unknown Abdominal pain (Acute) Onset Date: Unknown Renal colic on right side (Resolved) Onset Date: Unknown Rash and nonspecific skin eruption (Acute) Onset Date: Unknown Trapezius muscle strain (Resolved) Right shoulder pain (Acute) Arrhythmia (Acute) Onset Date: ~05/2017 palpitations. Went to ER and was told everything was okay. Acid indigestion (Acute) Abnormal Pap smear of cervix Onset Date: 10/18/17 LGSIL Asthma Onset Date: Unknown Depression Onset Date: Unknown History of asthma No hospitalizations. PRN inhaler. Last used last wintedr.10/18/17 Kidney stone Onset Date: Unknown Macular degeneration Onset Date: 2004 Migraine Onset Date: Unknown without aura contractions Onset Date: ~04/2018 Sickle cell trait Onset Date: Unknown diagnosed as a baby Spontaneous Onset Date: 07/01/16 Ureteral stent retained Onset Date: 04/29/17 Trichomoniasis Onset Date: Unknown Surgical History: Surgical History (Last Reviewed 05/17/18 @ 04:46 by Deep Clarke DO) History of renal stent (Resolved) Onset Date: Unknown History of dilation and curettage Onset Date: 07/01/16 Pt states she had a sab @ 13 wks with a d&C @ [facility]. History of tonsillectomy and adenoidectomy Onset Date: Unknown Hx of nephrolithotomy with removal of calculi Onset Date: 04/29/17 Hx of nephrolithotomy with removal of calculi Family History: Family History (Last Reviewed 05/17/18 @ 04:46 by Deep Clarke DO) Brother Sickle cell trait Asthma Daughter Sickle cell trait Father Asthma Diabetes Hypertension Sickle cell trait Macular degeneration Grandfather Lung cancer Grandmother Diabetes Hypertension CHF (congestive heart failure) COPD (chronic obstructive pulmonary disease) Sickle cell trait Mother Asthma Vagus nerve disease or syndrome Breast cancer Sister Asthma Sickle cell trait Son Sickle cell trait Social History: Preferred Language Mauritian Smoking Status Former smoker Abuse History No History of abuse Psych History Hx of Anxiety,Hx of Depression (Last Updated 05/10/18 @ 16:10 by Deep Clarke DO) No Social History Section defined Review Of Systems (GEN) - Review of Systems Generalized/Overall Review: Present: No Symptoms Reported EENTM: Present: No Symptoms Reported Respiratory: Present: No Symptoms Reported Cardiac: Present: No Symptoms Reported Abdominal: Present: Other - Contractions Genitourinary: Present: Other - Pelvic pressure Musculoskeletal: Present: No Symptoms Reported Neurological: Present: No Symptoms Reported Skin: Present: No Symptoms Reported Endocrine: Present: No Symptoms Reported Immunizations: IMMUNIZATION HX Immunizations Up to Date Yes History of Influenza Vaccine Yes Hx Pneumococcal Vaccination No Allergies/Adverse Reactions: Allergies Allergy/AdvReac Type Severity Reaction Status Date / Time oxycodone [From Percocet] Allergy Severe rash, Verified 05/17/18 02:00 "breathe funny; can't catch my breath" ceftriaxone [From Rocephin] Allergy Intermediate Hives Verified 05/17/18 02:00 amoxicillin [Amoxicillin] Allergy Mild Hives Verified 05/17/18 02:00 diphenhydramine Allergy Mild Hives Verified 05/17/18 02:00 [From Benadryl] sulfamethoxazole Allergy Mild Hives Verified 05/17/18 02:00 [From Bactrim] trimethoprim [From Bactrim] Allergy Mild Hives Verified 05/17/18 02:00 Home Medications: HOME MEDICATIONS Vit No.124/Iron/FA [ Vitamin Tablet] 1 ea PO DAILY 10/11/17 [Last Taken 05/16/18] Exam - Exam Vital Signs: Vital Signs - Last Taken Temp 36.7 C 05/17/18 04:30 Pulse 101 H 05/17/18 04:30 Resp 18 05/17/18 04:30 BP 142/81 H 05/17/18 04:30 Pulse Ox 95 05/17/18 04:30 Constitutional: Present: Alert, Oriented x3, Cooperative ENT Exam: Present: hearing grossly normal Neck: Present: non-tender Breasts: Present: Exam deferred Respiratory: Present: lungs clear, no respiratory distress Cardiovascular/Chest: Present: regular rate, rhythm, no edema Abdomen: Present: soft, no rebound tenderness, other - gravid /Rectal: Present: Other - cervix 4/80/-1 Extremity: Present: no pedal edema, no calf tenderness Skin Exam: Present: normal color, warm/dry, no cyanosis Neurologic: Present: alert, normal mood/affect, oriented x 3 Appearance: Present: appropriate appearance, appropriate insight Eye contact: Present: cooperative, good eye contact, normal speech Thoughts: Present: normal thought pattern Diagnostic Studies: Laboratory Results Urine Opiates Screen Negative (NEGATIVE) 05/17/18 02:35 Barbiturate Screen Negative (NEGATIVE) 05/17/18 02:35 Ur Phencyclidine Scrn Negative (NEGATIVE) 05/17/18 02:35 Urine Amphetamine Negative (NEGATIVE) 05/17/18 02:35 U Benzodiazepines Scrn Negative (NEGATIVE) 05/17/18 02:35 Urine Cocaine Screen Negative (NEGATIVE) 05/17/18 02:35 Urine Marijuana (THC) Negative (NEGATIVE) 05/17/18 02:35 Assessment/Plan - Assessment/Plan (1) Labor established Assessment: Admit for routine management of labor. Epidural if desires. Problem: Acute (2) Anemia affecting Problem: Acute (3) pelviectasis Assessment: Follow-up per foil spooler Problem: Acute
--- NOTE | 2018-05-17 04:44 | OR ---
Operative Report - Dictated Report Narrative: Spontaneous vaginal delivery of vigorously crying viable female at 0 419 on 05/17/2018 with Apgars 9 and 10, weighing 3191 g in BENNIE position with left hand at face. Cord clamping delayed approximately 1 minute Placenta delivered complete, intact, with three vessel cord Estimated blood loss: less than 50 ml Anesthesia: epidural Lacerations: None History for MU Definition: * The number of deliveries resulting in a live the patient experienced prior to current hospitalization * The previous delivery of live twins or any live multiple gestation is considered one live event. *If primagravida or nulliparous is documented select zero for the number of previous live births. Live Events: 2
[2018-05-17] MEDS ORDERED: SENNOSIDES 8.6 MG TABLET PO PRN (05:06)
[2018-05-17] MEDS ORDERED: BENZOCAINE/MENTHOL 81 SPRAY CAN TP PRN (05:06)
[2018-05-17] MEDS ORDERED: GLYCERIN/WITCH HAZEL LEAF 40 APPL BOX TP PRN (05:06)
[2018-05-17] MEDS ORDERED: BISACODYL 10 MG SUPP.RECT RC PRN (05:06)
[2018-05-17] MEDS ORDERED: HYDROCORTISONE 30 APPL TUBE TP PRN (05:06)
[2018-05-17] MEDS: IBUPROFEN 800 MG TABLET PO PRN ×3 (05:27→18:31)
[2018-05-17] MEDS: ACETAMINOPHEN 325 MG TABLET PO PRN ×3 (09:09→20:59)
[2018-05-17] MEDS: DOCUSATE SODIUM 100 MG CAPSULE PO SCH ×2 (09:09→20:59)
[2018-05-17] MEDS: PRENATAL VITS96/IRON FUM/FOLIC 1 TAB TABLET PO SCH ×2 (09:09→09:10)
[2018-05-18] MEDS: IBUPROFEN 800 MG TABLET PO PRN ×4 (00:50→22:38)
[2018-05-18] MEDS: ACETAMINOPHEN 325 MG TABLET PO PRN (05:22)
[2018-05-18] MEDS: PRENATAL VITS96/IRON FUM/FOLIC 1 TAB TABLET PO SCH (10:05)
[2018-05-18] MEDS: DOCUSATE SODIUM 100 MG CAPSULE PO SCH ×2 (10:06→20:27)
--- NOTE | 2018-05-18 14:17 | PN ---
Subjective - Date and Time Seen Date: 05/18/18 Time: 14:16 Objective - Vitals Vitals: Last Vital Signs Temp 36.6 C 05/18/18 06:52 Pulse 85 05/18/18 06:52 Resp 16 05/18/18 06:52 BP 126/76 05/18/18 06:52 Pulse Ox 98 05/18/18 06:52 Patient denies complaints. Lochia wnl Abdomen - soft, nontender Uterus - firm, at umbilicus - 1 No calf tenderness Impression: day #1 - s/p spontaneous vaginal delivery. Plan: Continue routine care Assessment/Plan - Problems/Diagnosis (1) Labor established Problem: Acute (2) Anemia affecting Problem: Acute (3) pelviectasis Problem: Acute
[2018-05-19] MEDS: IBUPROFEN 800 MG TABLET PO PRN (05:10)
[2018-05-19 07:11] VITALS: BP 134/72
--- NOTE | 2018-05-19 08:43 | PN ---
Subjective - Date and Time Seen Date: 05/19/18 Time: 08:43 Objective - Vitals Vitals: Last Vital Signs Temp 36.2 C 05/19/18 06:40 Pulse 95 05/19/18 06:40 Resp 20 05/19/18 06:40 BP 134/72 05/19/18 06:40 Pulse Ox 98 05/19/18 06:40 Patient denies complaints. Bottle feeding Lochia wnl Abdomen - soft, nontender Uterus - firm, at umbilicus - 2 No calf tenderness Impression: day #2 - s/p spontaneous vaginal delivery. Plan: Routine discharge instructions Assessment/Plan - Problems/Diagnosis (1) Labor established Problem: Acute (2) Anemia affecting Problem: Acute (3) pelviectasis Problem: Acute
[2018-05-19] MEDS: PRENATAL VITS96/IRON FUM/FOLIC 1 TAB TABLET PO SCH (09:00)
[2018-05-19] MEDS: DOCUSATE SODIUM 100 MG CAPSULE PO SCH (09:00)
== END 2018-05-19 11:40 | disposition home or self-care (01) | DRG 998 ==
LOC: OBCLINIC 01:28 → OB 02:56
PROVIDERS: ADMIT Obstetrics & Gynecology; ATTEND Obstetrics & Gynecology
CPT/HCPCS: 59025; 80307